=== PATIENT | female | born 2000 | race Caucasian/White ===

== ENCOUNTER 2018-03-25 15:54 | Emergency (ER) | payer MEDICAID ==
--- NOTE | 2018-03-25 16:17 | EDPHY ---
H & P Stated Complaint: SOB Time Seen by Provider: 03/25/18 16:13 HPI/ROS: HPI: This is a 18-year-old female who presents with Chief Complaint: Shortness of breath Location: Chest Quality: Dyspnea Duration: 1 week Signs and Symptoms: + shortness of breath at rest, + shortness of breath on exertion, no cough, no chest pain, no palpitations, no lower extremity edema, no wheezing, no orthopnea, no paroxysmal nocturnal dyspnea, no fever, no injury/ trauma, no hemoptysis, no carpal pedal spasms Timing: Acute, worse with trying to take a deep breath in Severity: Moderate Context: Patient presents with one-week history shortness of breath that she describes as inability to take a deep breath in. She reports that she has no cough, no fever, no chest pain, no lower extremity edema, no recent long distance travel. No history of lung disease. Nonsmoker. Patient denies any recent upper respiratory symptoms. She has tried nothing for the symptoms. Denies marijuana use. No primary care provider. Denies any actual chest pain and reports that shortness of breath is not positional. No History of clotting disorders in the family. Modifying Factors: None Comment: ROS: A comprehensive 10 system review of systems is otherwise negative aside from elements mentioned in the history of present illness. MEDICAL/SURGICAL/SOCIAL HISTORY: Medical history: Anxiety, infectious mononucleosis. Has a Nexplanon and does not have regular menses. Surgical history: Denies Social history: Nonsmoker. CONSTITUTIONAL: Slightly anxious extremely well-appearing young adult female, awake and alert, no obvious distress HEENT: Atraumatic and normocephalic, PERRL, EOMI. Nares patent; no rhinorrhea; no nasal mucosal edema. Tympanic membranes clear. Oropharynx clear, no exudate and moist pink mucosa. Airway patent. No lymphadenopathy. No meningismus. Cardiovascular: Normal S1/S2, regular rate, regular rhythm, without murmur rub or gallop. PULMONARY/CHEST: Symmetrical and nontender. Clear to auscultation bilaterally. Good air movement. No accessory muscle usage. ABDOMEN: Soft, nondistended, nontender, no rebound, no guarding, no peritoneal signs, no masses or organomegaly. No CVAT. EXTREMITIES: 2/2 pulses, strength 5/5, no deformities, no clubbing, no cyanosis or edema. Negative Homans sign. NEUROLOGICAL: no focal neuro deficits. GCS 15. SKIN: Warm and dry, no erythema. no rash. Good capillary refill. Source: Patient Exam Limitations: No limitations - Personal History LMP (Females 10-55): IUD In Place (does not have regular menses) Current Tetanus/Diphtheria Vaccine: Yes Current Tetanus Diphtheria and Acellular Pertussis (TDAP): Yes - Medical/Surgical History Hx Asthma: No Hx Chronic Respiratory Disease: No Hx Diabetes: No Hx Cardiac Disease: No Hx Renal Disease: No Hx Cirrhosis: No Hx Alcoholism: No Hx HIV/AIDS: No Hx Splenectomy or Spleen Trauma: No Other PMH: anxiety, mono - Social History Smoking Status: Never smoked Constitutional: Initial Vital Signs Temperature (C) 36.9 C 03/25/18 16:02 Heart Rate 69 03/25/18 16:02 Respiratory Rate 16 03/25/18 16:02 Blood Pressure 119/68 03/25/18 16:02 O2 Sat (%) 97 03/25/18 16:02 O2 Delivery Mode Room Air Allergies/Adverse Reactions: No Known Allergies Allergy (Unverified 03/25/18 16:01) Home Medications: Medication Instructions Recorded Nexplanon 03/25/18 Medical Decision Making - Diagnostics Imaging Results: Imaging Impressions Chest X-Ray 03/25/18 16:17 Impression: Hyperinflation suggest airways disease. Wheezing? ED Course/Re-evaluation: Vital signs reviewed and stable upon arrival. No hypoxia respiratory distress. IV access, laboratory studies, chest x-ray, EKG ordered Wells criteria is low risk for pulmonary embolism so I will order a D-dimer. 1625: EKG my read with attending shows normal sinus rhythm with no acute ischemic changes. No signs of pericarditis, no arrhythmias. 1635: Chest x-ray my read shows no effusion, no opacity, no pneumothorax, no widened mediastinum. 1657: Labs reviewed and no signs of anemia, leukocytosis, acute kidney injury, electrolyte imbalance, VTE. Patient was referred to a primary care provider for further evaluation if symptoms continue to persist. I Suspect this may be related to anxiety. This patient was seen under the supervision of my secondary supervising physician. I evaluated care for this patient with attending. Discussed this patient with Dr. Sanchez. Differential Diagnosis: Shortness of breath including but not limited to pulmonary infectious process, COPD, asthma, pulmonary embolus and congestive heart failure. - Data Points Laboratory Results: Laboratory Results 03/25/18 16:25 03/25/18 16:25 03/25/18 03/25/18 03/25/18 16:25 16:25 16:25 WBC RBC Hgb Hct MCV MCH MCHC RDW Plt Count MPV Neut % (Auto) Lymph % (Auto) [place] % (Auto) Eos % (Auto) Baso % (Auto) Nucleat RBC Rel Count Absolute Neuts (auto) Absolute Lymphs (auto) Absolute Monos (auto) Absolute Eos (auto) Absolute Basos (auto) Absolute Nucleated RBC Immature Gran % Immature Gran # D-Dimer 0.50 ug/mLFEU ug/mLFEU (0.00-0.50) Sodium 138 mEq/L mEq/L (135-145) Potassium 3.8 mEq/L mEq/L (3.5-5.2) Chloride 109 mEq/L mEq/L (97-110) Carbon Dioxide 24 mEq/l mEq/l (22-31) Anion Gap 5 mEq/L L mEq/L (6-14) BUN 9 mg/dL mg/dL (7-23) Creatinine 0.6 mg/dL mg/dL (0.6-1.0) Estimated GFR > 60 Glucose 91 mg/dL mg/dL (70-100) Calcium 10.4 mg/dL mg/dL (8.5-10.4) Beta HCG, Qual NEGATIVE 03/25/18 16:25 WBC 6.33 10^3/uL 10^3/uL (3.80-9.50) RBC 4.25 10^6/uL 10^6/uL (4.18-5.33) Hgb 13.6 g/dL g/dL (12.6-16.3) Hct 40.0 % % (38.0-47.0) MCV 94.1 fL fL (81.5-99.8) MCH 32.0 pg pg (27.9-34.1) MCHC 34.0 g/dL g/dL (32.4-36.7) RDW 11.8 % % (11.5-15.2) Plt Count 334 10^3/uL 10^3/uL (150-400) MPV 9.1 fL fL (8.7-11.7) Neut % (Auto) 46.5 % % (39.3-74.2) Lymph % (Auto) 43.9 % % (15.0-45.0) [place] % (Auto) 7.3 % % (4.5-13.0) Eos % (Auto) 1.3 % % (0.6-7.6) Baso % (Auto) 0.8 % % (0.3-1.7) Nucleat RBC Rel Count 0.0 % % (0.0-0.2) Absolute Neuts (auto) 2.95 10^3/uL 10^3/uL (1.70-6.50) Absolute Lymphs (auto) 2.78 10^3/uL 10^3/uL (1.00-3.00) Absolute Monos (auto) 0.46 10^3/uL 10^3/uL (0.30-0.80) Absolute Eos (auto) 0.08 10^3/uL 10^3/uL (0.03-0.40) Absolute Basos (auto) 0.05 10^3/uL 10^3/uL (0.02-0.10) Absolute Nucleated RBC 0.00 10^3/uL 10^3/uL (0-0.01) Immature Gran % 0.2 % % (0.0-1.1) Immature Gran # 0.01 10^3/uL 10^3/uL (0.00-0.10) D-Dimer Sodium Potassium Chloride Carbon Dioxide Anion Gap BUN Creatinine Estimated GFR Glucose Calcium Beta HCG, Qual Departure - Departure Disposition: Home, Routine, Self-Care Clinical Impression: Dyspnea Qualifiers: Dyspnea type: unspecified Qualified Code(s): R06.00 - Dyspnea, unspecified Condition: Good Instructions: Dyspnea (ED), Pulmonary Function Tests (DC) Additional Instructions: Consume a minimum of 8-10 glasses of water or electrolyte fluid replacement drinks that include Gatorade, Powerade, Pedialyte. Avoid any inhalants that could exacerbate your symptoms like smoke or toxic fumes. Please establish care with primary care provider. A referral has been provided. If symptoms persist greater than 1-2 weeks, please follow-up with primary care provider to determine if further testing is needed including pulmonary function test. Referrals: Vin London DO [Medical Doctor] - As per Instructions
--- NOTE | 2018-03-25 16:28 | CPEKG ---
Test Reason : OPEN Blood Pressure : / mmHG Vent. Rate : 063 BPM Atrial Rate : 000 BPM P-R Int : 190 ms QRS Dur : 083 ms QT Int : 402 ms P-R-T Axes : 072 087 072 degrees QTc Int : 412 ms Sinus rhythm Confirmed by Janae Rowland ([id number]) on 03/25/2018 4:28:13 PM Referred By: JANAE ROWLAND Confirmed By:Janae Rowland
[2018-03-25 16:41] LABS: PLATELET COUNT 334 10^3/uL (150-400)
[2018-03-25 17:06] VITALS: BP 106/68
== END 2018-03-25 17:10 | disposition home or self-care (01) ==
DX: R06.00 Dyspnea, unspecified (principal); F41.9 Anxiety disorder, unspecified